=== PATIENT | male | born 1970 | race Caucasian/White ===

== ENCOUNTER 2020-08-30 15:06 | Emergency (ER) | payer OTHER, SELFPAY ==
[2020-08-30 15:28] VITALS: BP 144/88; PULSE 75; RESP 18; TEMP 37.1; O2SAT 97; BMI 38.0
--- NOTE | 2020-08-30 15:29 | ED.GENADULT ---
HPI - General Adult General Stated complaint: chest pain Time Seen by Provider: 08/30/20 15:28 Related Data Allergies Allergy/AdvReac Type Severity Reaction Status Date / Time No Known Allergies Allergy Unverified 04/28/20 15:35 [No Known Allergies*] [facility] Past Medical History Medical History (Updated 08/30/20 @ 15:33 by Edy Louise) No known health problems Course Course Course Narrative: 1535-This is a rapid medical exam. 50 yo with no PMH, strong family history of dad [place] 41 here with central chest pain began this morning with shortness of breath and burning in throat. Will check labs, CXR, EKG. Deferred additional HPI, ROS, PE to primary provider.
--- NOTE | 2020-08-30 15:31 | XR_ITS ---
EXAMINATION: XR CHEST CLINICAL INFORMATION: Chest pain. COMPARISON: 11/14/2019 portable chest. TECHNIQUE: 2 views of the chest were obtained. FINDINGS: No significant abnormality is noted involving the heart, lungs, mediastinum, bony thorax or soft tissues. XR/XR chest 2V IMPRESSION: No acute cardiopulmonary process.
--- NOTE | 2020-08-30 15:31 | ECG_ITS ---
Test Reason : CP Blood Pressure : / mmHG Vent. Rate : 070 BPM Atrial Rate : 070 BPM P-R Int : 154 ms QRS Dur : 096 ms QT Int : 372 ms P-R-T Axes : 041 029 033 degrees QTc Int : 401 ms Normal sinus rhythm Normal ECG When compared with ECG of 15-NOV-2019 01:41, No significant change was found Referred By: Terrie Archibald Electronically Signed By:AFUA CALHOUN
[2020-08-30 16:09] LABS: MANUAL DIFF FLAG NO
[2020-08-30 16:11] LABS: Basophils Percent Auto 0.4 % (0-2); Eosinophils Absolute Auto 0.1 X10*3/uL (0.0-0.4); Eosinophils Percent Auto 1.9 % (0-4); Hematocrit 41.5 % (42-52); Hemoglobin 13.8 g/dl (14.0-18.0); Imm Gran Abs Auto 0.02 X10*3/uL (0.00-0.03); Imm Gran Pct Auto 0.3 % (0.0-0.4); Lymphocytes Absolute Auto 2.1 X10*3/uL (1.2-4.9); Lymphocytes Percent Auto 28.4 % (20-40); Mean Corpuscular HGB Conc 33.3 g/dl (31.0-36.0); Mean Corpuscular Hemoglobin 30.6 pg (27.0-33.0); Monocytes Absolute Auto 0.5 X10*3/uL (0.1-1.2); Monocytes Percent Auto 7.3 % (2-11); Neutrophils Absolute Auto 4.6 X10*3/uL (2.0-8.3); Neutrophils Percent Auto 61.7 % (45-73); Platelet Count 258 X10*3/uL (160-400); Red Blood Count 4.51 X10*6/uL (4.60-5.80); White Blood Count 7.4 X10*3/uL (4.8-10.8)
[2020-08-30 16:35] LABS: Alanine Aminotransferase 20 U/L (0-40); Albumin Level 4.5 g/dL (3.5-5.0); Alkaline Phosphatase 54 U/L (39-117); Anion Gap 11 (12-20); Aspartate Amino Transferase 21 U/L (5-37); Bilirubin Direct 0.2 mg/dL (0.0-0.5); Bilirubin Total 0.4 mg/dL (0.0-1.0); Blood Urea Nitrogen 10 mg/dL (9-16); Calcium 10.4 mg/dL (8.4-10.2); Carbon Dioxide 34 mmol/L (22-29); Chloride 98 mmol/L (96-108); Creatinine Clr Calc Pharmacy 89.7; Estimated Glomerular Filt Rate > 60; Glucose Random 101 mg/dL (60-115); Potassium 4.3 mmol/l (3.3-5.1); Sodium 139 mmol/L (135-145)
[2020-08-30 16:41] LABS: Troponin-I High Sensitivity < 3.5 ng/L (<3.5-35.0)
[2020-08-30 20:51] VITALS: BP 169/96; PULSE 71; RESP 18; TEMP 36.8; O2SAT 99
[2020-08-30] MEDS: 0.9 % Sodium Chloride 1,000 ML 999 ML IV (21:43)
[2020-08-30] MEDS: Famotidine/PF 20 MG/2 ML VIAL IVPUSH (21:44)
[2020-08-30] MEDS: Magnesium Hydrox/Alum Hydrox 30 ML ORAL.SUSP PO (21:46)
[2020-08-30] MEDS: Lidocaine HCl Viscous 2 % 15 ML SOLUTION MUCOUS MEM (21:46)
[2020-08-30] MEDS: PHENobarb/Hyoscy/Atropine/Scop 10 ML ELIXIR PO (21:47)
[2020-08-30 22:12] VITALS: BP 132/72; PULSE 61; RESP 15; TEMP 36.6; O2SAT 98
--- NOTE | 2020-08-30 22:27 | ED_ITS ---
HPI - Chest Pain General Chief Complaint: Chest Pain Stated Complaint: chest pain Time Seen by Provider: 08/30/20 15:28 Source: patient Mode of arrival: ambulatory Limitations: no limitations History of Present Illness HPI narrative: Patient presents to ED for chest pain described as epigastric burning acid sensation going up to the throat. Patient has similar presentation in November. Patient states he came to ED to be evaluated due to history of father having heart attack at 40. Patient denies any pleuritic chest pain, swelling of lower extremities, calf pain, coughing up blood, fever, or chills. Patient de nies any recent travel, recent surgery, any estrogen use, any recent trauma, or any history of blood clots. MD complaint: chest pain Related Data Previous Rx's Medication Instructions Recorded famotidine [Pepcid] 20 mg PO BID 20 Days #40 tab 08/30/20 Allergies Allergy/AdvReac Type Severity Reaction Status Date / Time No Known Allergies Allergy Unverified 04/28/20 15:35 [No Known Allergies*] Review of Systems Review of Systems: Yes all other systems are reviewed and are negative Constitutional: Constitutional: Reports as per HPI and Reports no additional constitutional complaints Eyes: Eyes: Reports as per HPI and Reports no additional eye complaints Cardiovascular: Cardiovascular: Reports as per HPI, Reports no additional cardiovascular complaints and Reports chest pain (Epigastric burning sensation) Respiratory: Respiratory: Reports as per HPI and Reports no additional respiratory complaints Gastrointestinal: Gastrointestinal: Reports as per HPI and Reports no additional gastrointestinal complaints Musculoskeletal: Musculoskeletal: Reports no additional musculoskeletal complaints and Reports as per HPI Neurologic: Reports system reviewed and no additional complaints, except as documented and Reports as per HPI Psychiatric: Psychiatric: Reports no additional psychiatric complaints and Reports as per HPI [facility] Past Medical History Medical History (Updated 08/31/20 @ 00:00 by Background Daemon) No known health problems Social History Social History Alcohol intake: current Alcohol intake frequency: a few times a week Smoked in Last 30 Days: No Use of substances other than those prescribed or required for medical reasons: No Advance Directives: No Advance Directives Information Provided: No Physical Exam Vital Signs: Vital Signs: Last Vital Signs Temp 97.8 F 08/30/20 22:12 Pulse 61 08/30/20 22:12 Resp 15 08/30/20 22:12 BP 132/72 08/30/20 22:12 Pulse Ox 98 08/30/20 22:12 Body Mass Index 38.0 Const: General: cooperative Orientation/consciousness: patient oriented x3 HENMT: Head: Yes normal to inspection, Yes No palpable skull fracture present, Yes normocephalic and Yes atraumatic Eyes: General: appearance normal, both eyes and all related structures Neck: Neck: Yes normal visual inspection, Yes full ROM, Yes no lymphadenopathy, Yes no meningeal signs, Yes trachea midline, Yes supple and No tender Chest: Chest palpation & inspection: normal inspection of the chest and normal palpation of entire chest wall Resp: Effort & Inspection: normal respiratory effort and able to speak in complete sentences Auscultation: clear to auscultation bilaterally Cardio: Jugular venous distension: no JVD Heart sounds: S1 normal heart sound present and S2 normal heart sound present GI: Inspection: Yes normal to inspection Palpation (GI): Soft to palpation, not firm, nontender, no guarding and not rigid : General: No CVA tenderness and Yes no CVA tenderness Back/Spine/Pelvis: Back: no CVA tenderness, No CVA tenderness and No back tenderness Skin: General skin exam: no rashes or lesions noted and elasticity normal Neuro: General: patient oriented x3, no meningeal signs and CN's II-XI intact bilaterally Cranial nerves: Yes CN's II-XII intact bilaterally Extrem: General: Yes normal to inspection and Yes full ROM Psych: Appearance: grossly normal, well kempt and not disheveled Course Course Course Narrative: Due to age and family history patient will be having a cardiac evaluation. Most likely patient had a GERD exacerbation. Not suspecting PE. Patient has no risk factors for PE. Patient also had chest x-ray done. Patient will be given GI cocktail. Patient states burning sensation in epigastric area is now only a 2. Reevaluation(s) Reevaluation #1: Second troponin came back negative. Patient's EKG is normal. Patient feels better after receiving GI cocktail. BNP negative. History physical exam not suspecting or indicating PE. History physical exam indicate GERD exacerbation. Patient for to follow up with PCP Time: 10:46 MDM - Chest Pain MDM Narrative Medical decision making narrative: GERD Lab Data Result diagrams: 08/30/20 16:04 08/30/20 16:04 Labs: Lab Results 08/30/20 08/30/20 08/30/20 Range/Units 16:04 16:04 16:04 WBC 7.4 (4.8-10.8) X10*3/uL RBC 4.51 L (4.60-5.80) X10*6/uL Hgb 13.8 L (14.0-18.0) g/dl Hct 41.5 L (42-52) % MCV 92.0 (80-98) fL MCH 30.6 (27.0-33.0) pg MCHC 33.3 (31.0-36.0) g/dl RDW 12.0 (11.0-16.0) % Plt Count 258 (160-400) X10*3/uL MPV 9.0 L (9.4-12.4) fL Immature Gran % (Auto) 0.3 (0.0-0.4) % Neut % (Auto) 61.7 (45-73) % Lymph % (Auto) 28.4 (20-40) % [place] % (Auto) 7.3 (2-11) % Eos % (Auto) 1.9 (0-4) % Baso % (Auto) 0.4 (0-2) % Lymph # (Auto) 2.1 (1.2-4.9) X10*3/uL [place] # (Auto) 0.5 (0.1-1.2) X10*3/uL Eos # (Auto) 0.1 (0.0-0.4) X10*3/uL Baso # (Auto) 0.0 (0.0-0.2) X10*3/uL Abs Immat Gran (auto) 0.02 (0.00-0.03) X10*3/uL Absolute Neuts (auto) 4.6 (2.0-8.3) X10*3/uL Absolute Nucleated RBC 0.000 (0.0-0.012) X10*3/uL Nucleated RBC % (auto) 0.0 (0.0-0.2) /100WBC Sodium 139 (135-145) mmol/L Potassium 4.3 (3.3-5.1) mmol/l Chloride 98 (96-108) mmol/L Carbon Dioxide 34 H (22-29) mmol/L Anion Gap 11 L (12-20) BUN 10 (9-16) mg/dL Creatinine 0.90 (0.5-1.4) mg/dL Estim Creat Clear Calc 89.7 Estimated GFR > 60 Random Glucose 101 (60-115) mg/dL Calcium 10.4 H (8.4-10.2) mg/dL Total Bilirubin 0.4 (0.0-1.0) mg/dL Direct Bilirubin 0.2 (0.0-0.5) mg/dL AST 21 (5-37) U/L ALT 20 (0-40) U/L Alkaline Phosphatase 54 (39-117) U/L Troponin I High Sens < 3.5 (<3.5-35.0) ng/L B-Natriuretic Peptide (<100) pg/mL Total Protein 7.0 (6.5-8.0) g/dL Albumin 4.5 (3.5-5.0) g/dL 08/30/20 Range/Units 21:43 WBC (4.8-10.8) X10*3/uL RBC (4.60-5.80) X10*6/uL Hgb (14.0-18.0) g/dl Hct (42-52) % MCV (80-98) fL MCH (27.0-33.0) pg MCHC (31.0-36.0) g/dl RDW (11.0-16.0) % Plt Count (160-400) X10*3/uL MPV (9.4-12.4) fL Immature Gran % (Auto) (0.0-0.4) % Neut % (Auto) (45-73) % Lymph % (Auto) (20-40) % [place] % (Auto) (2-11) % Eos % (Auto) (0-4) % Baso % (Auto) (0-2) % Lymph # (Auto) (1.2-4.9) X10*3/uL [place] # (Auto) (0.1-1.2) X10*3/uL Eos # (Auto) (0.0-0.4) X10*3/uL Baso # (Auto) (0.0-0.2) X10*3/uL Abs Immat Gran (auto) (0.00-0.03) X10*3/uL Absolute Neuts (auto) (2.0-8.3) X10*3/uL Absolute Nucleated RBC (0.0-0.012) X10*3/uL Nucleated RBC % (auto) (0.0-0.2) /100WBC Sodium (135-145) mmol/L Potassium (3.3-5.1) mmol/l Chloride (96-108) mmol/L Carbon Dioxide (22-29) mmol/L Anion Gap (12-20) BUN (9-16) mg/dL Creatinine (0.5-1.4) mg/dL Estim Creat Clear Calc Estimated GFR Random Glucose (60-115) mg/dL Calcium (8.4-10.2) mg/dL Total Bilirubin (0.0-1.0) mg/dL Direct Bilirubin (0.0-0.5) mg/dL AST (5-37) U/L ALT (0-40) U/L Alkaline Phosphatase (39-117) U/L Troponin I High Sens < 3.5 (<3.5-35.0) ng/L B-Natriuretic Peptide < 10 (<100) pg/mL Total Protein (6.5-8.0) g/dL Albumin (3.5-5.0) g/dL ECG Data ECG #1: Interpretation: NORMAL SINUS RHYTHM. NORMAL EKG. VENTRICULAR RATE 70. CT INTERVAL 154. QRS 96. QTC 4 1. NEGATIVE STEMI Discharge Plan Discharge Clinical Impression: Chest pain due to GERD Patient Disposition: Home, Self-Care Instructions: Chest Pain (ED), Gastroesophageal Reflux Disease (ED) Additional Instructions: RETURN TO THE ED IMMEDIATELY FOR SHORTNESS OF BREATH ON EXERTION, WORSENING CHEST PAIN, CHEST PAIN ON INSPIRATION, ABDOMINAL PAIN, FEVER, CHILLS, VOMITING BLOOD, RECTAL BLEEDING, DIZZINESS, SWELLING OF LOWER EXTREMITIES, CALF PAIN, OR ANY OTHER CONCERNING SYMPTOMS. Prescriptions: New famotidine [Pepcid] 20 mg tablet 20 mg PO BID 20 Days Qty: 40 RF: 0 Referrals: Pawel Dang MD [Physician] - 2 days (GERD. Will need endoscopy to evaluate for ulcers) Bebeto Feldman MD [Physician] - 2 days (Chest pain. Family history of father with heart attack at 40. EKG normal. Troponins negative. BNP negative. Needs follow-up) Interventions: ED Discharge Assessment Last Done: 08/30/20 23:23 Discharge Date/Time: 08/30/20 23:33 Print Language: French
[2020-08-30 22:29] LABS: Troponin-I High Sensitivity < 3.5 ng/L (<3.5-35.0)
--- NOTE | 2020-08-30 22:40 | PC.NURSE ---
some immediate relief with gi cocktail but pain resuming afterwards.
[2020-08-30 22:44] LABS: B Type Natriuretic Peptide < 10 pg/mL (<100)
== END 2020-08-30 23:33 | disposition home or self-care (01) ==
PROVIDERS: Nurse Practitioner Family; Physician Assistant; Emergency Provider Emergency Medicine Emergency Medical Services; PCP Internal Medicine
DX: R07.9 Chest pain, unspecified (principal); K21.9 Gastro-esophageal reflux disease without esophagitis
CPT/HCPCS: 36415; 71046; 80048; 80076; 83880; 84484; 85025; 93005; 96361; 96374; 99284

== ENCOUNTER → 2020-09-08 12:32 | Outpatient (BNVA) | payer OTHER, SELFPAY | PROVIDERS: PCP Internal Medicine; Visit Provider Physician Assistant ==

== ENCOUNTER 2020-11-02 08:24 | Day surgery (SDC) | payer OTHER, SELFPAY ==
[2020-10-26 15:50] VITALS: BMI 28.0
--- NOTE | 2020-11-01 09:14 | P.CONAN_ITS ---
Documented by User: July Michaud 11/01/20 09:18 HPI - Anesthesia Eval Consult details Narrative: 50yo M for Upper Endoscopy and Colonoscopy [facility] Active Problems Active Problems: All Active Problems (Updated 10/26/20 @ 15:47 by Daisy Chahal) Chest pain due to GERD (Acute) Encounter for screening colonoscopy (Acute) Past Medical History Medical History GERD (gastroesophageal reflux disease) Family History Family History Father Cancer Pancreatic cancer Brother Adenomatous colon polyp Mother Adenomatous colon polyp Surgical History Surgical History H/O arthroscopic knee surgery Social History Social History Household Members: Spouse and Children Are you a primary auto care center manager to a significant other at home: No Do you presently have visiting nurse or other home services: No Alcohol intake: current Alcohol intake frequency: a few times a week Smoking Status: Never smoker Years Smoked: 19 years Advance Directives: No Advance Directives Information Provided: No Advance Directives on File: No Current occupational status: employed 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 Rate : 070 BPM Atrial Rate : 070 BPM P-R Int : 154 ms QRS Dur : 096 ms QT Int : 372 ms P-R-T Axes : 041 029 033 degrees QTc Int : 401 ms Normal sinus rhythm Normal ECG When compared with ECG of 15-NOV-2019 01:41, No significant change was found Assessment and Plan Assessment Anesthesia Assessment: Chart Reviewed Documented by User: Stacia Hunter 11/02/20 09:59 PMF Past Medical History Medical History GERD (gastroesophageal reflux disease) Family History Family History Father Cancer Pancreatic cancer Brother Adenomatous colon polyp Mother Adenomatous colon polyp Surgical History Surgical History H/O arthroscopic knee surgery Social History Social History Household Members: Spouse and Children Are you a primary auto care center manager to a significant other at home: No Do you presently have visiting nurse or other home services: No Alcohol intake: current Alcohol intake frequency: a few times a week Smoking Status: Never smoker Years Smoked: 19 years Advance Directives: No Advance Directives Information Provided: No Advance Directives on File: No Current occupational status: employed 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
[2020-11-02 08:46] VITALS: BP 115/72; PULSE 74; RESP 18; TEMP 36.1; O2SAT 97
[2020-11-02] MEDS: Lactated Ringers 1,000 ML 100 ML IVCONT (08:53)
--- NOTE | 2020-11-02 09:35 | MHC.SHP ---
Pre-Procedural Eval Section B Chief Complaint: GERD, Screening Details of Present Illness: fh of polyps Relevant Family History (Specify if Yes): Yes Relevant Social History: None Present Medications: see Short Stay Collaborative assessment Medical History: Significant History (GERD (gastroesophageal reflux disease) History of Previous Operations: Relevant previous surgery/procedure and date(s) (knee surgery) Allergies: Allergies Allergy/AdvReac Type Severity Reaction Status Date / Time No Known Allergies Allergy Verified 11/02/20 08:43 [No Known Allergies*] Review of Systems Sugical H&P ROS: Negative: Constitution, Cardiovascular, Respiratory, Neurological, Psychiatric, Hem-Onc, Allergic/Immunologic, Gastrointestinal, Genitourinary, Musculoskeletal, Integumentary, Endocrine and Eyes/Ears/Nose/Throat Exam Surgical H&P Exam: Normal: HEENT, Normal: Heart, Normal: Lungs, Normal: Extremities, Normal: Abdomen, Normal: Skin and Normal: Neurological Plan Diagnosis/Plan: Unchanged I have reviewed the history and physical and performed a pertinent physical examination on my patient. No changes have occurred unless specified.
--- NOTE | 2020-11-02 09:55 | PM.OP ---
Brief Operative Note Date of Service: 11/02/20 Pre-op diagnosis: non cardiac chest pain, colon screening Post-op diagnosis: same Procedure: see op note Surgeon: Pawel Dang MD Anesthesia: MAC Estimated blood loss (mL): 0 Condition: stable Disposition: PACU
--- NOTE | 2020-11-02 09:56 | P.OP_ITS ---
Operative Note Operative Note Date of Service: 11/02/20 Narrative: Operative Information Procedure Description: EGD, Colonoscopy FLEXIBLE TRANSORAL UPPER GASTROINTESTINAL ENDOSCOPY AND COLONOSCOPY PROCEDURE NOTE UPPER ENDOSCOPY Consent: Indications for the procedure and potential complications of bleeding, perforation, reaction to medications and missed diagnosis were discussed with the patient and informed consent was obtained. Instrument: Olympus GIF H 190 J mid size upper endoscope Monitoring: Vital signs and clinical assessment, continuous EKG monitoring, Pulse oximetry, Carbon Dioxide monitoring and blood pressure monitoring were done throughout the procedure. Procedure: The patient was placed in the left lateral decubitis position and pre-procedure medications were administered and a bite block was placed. The endoscope was inserted into the mouth and advanced under direct vision to the third part of duodenum. A careful inspection was made as the upper endoscope was withdrawn including a retroflexed examination of the proximal stomach; Findings and interventions are described below. 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 Biopsies were obtained. Grade 2 flap valve on retroflexed examination of the cardia. Duodenum: Mild bulbar duodenitis, bx taken Intervention: Biopsies as noted above COLONOSCOPY Instrument: Olympus variable stiffness pediatric scope 190L Colonoscopy Monitoring: Vital signs and clinical assessment, continuous EKG monitoring, Pulse oximetry, Carbon Dioxide monitoring and blood pressure monitoring were done throughout the procedure. Colon withdrawal time was 13 minutes. Procedure: The patient was placed in the left lateral decubitis position and pre-procedure medications were administered. After a digital rectal examination of the ano-rectum, the video colonoscope was inserted into the rectum and advanced through the colon to the cecum/TI. The colonoscope was slowly withdrawn in a retrograde panoramic fashion and the colon mucosa was carefully examined including a retroflexed view of the rectum. Findings and interventions are described below. Procedure Difficulty: easy Findings: Terminal Ileum-normal Cecum:normal, few diverticula seen Ascending Colon: normal Transverse Colon -normal Descending Colon: 8-10 mm sessile polyp removed with cold snare Sigmoid Colon: mild diverticulosis, 8-10 mm sessile polyp removed with cold snare Rectum: Retroflexion with small internal hemorrhoids, grade II Anorectum - internal hemorrhoids seen at anal verge Colon preparation: [place] Bowel Preparation Scale Right colon; 3 Transverse colon: 3 Left colon; 3 (0 = Unprepared colon segment with mucosa not seen due to solid stool that cannot be cleared. 1 = Portion of mucosa of the colon segment seen, but other areas of the colon segment not well seen due to staining, residual stool and/or opaque liquid. 2 = Minor amount of residual staining, small fragments of stool and/or opaque liquid, but mucosa of colon segment seen well. 3 = Entire mucosa of colon segment seen well with no residual staining, small fragments of stool or opaque liquid) Impression and Post Procedure Diagnosis: Endoscopy Findings: vocal cord nodule esophagitis duodenitis Colonoscopy Findings: polyps internal hemorrhoids diverticular disease Plan: Await Pathology results Repeat Colonoscopy in 5 years or earlier if clinically indicated High fiber diet leaflet avoid straining at stool, epsom salts and sitz bath, anusol supps or cream as needed consider changing famotidine to PPI if any vocal cord sx then f/u with ENT Above findings were reviewed with the patient and relevant handouts were provided if indicated.
[2020-11-02 10:22] VITALS: BP 106/72; PULSE 70; RESP 18; TEMP 37.5; O2SAT 99
[2020-11-02 10:41] VITALS: BP 109/81; PULSE 65; RESP 18; TEMP 36.2; O2SAT 97
== END 2020-11-02 11:06 | disposition home or self-care (01) ==
PROVIDERS: PCP Internal Medicine; Visit Provider Internal Medicine Gastroenterology
PROC: (CPT 45385; principal; 2020-11-02 09:30)
DX: Z12.11 Encounter for screening for malignant neoplasm of colon (principal); Z83.71 Family history of colonic polyps; D12.4 Benign neoplasm of descending colon; D12.5 Benign neoplasm of sigmoid colon; K57.30 Diverticulosis of large intestine without perforation or abscess without bleeding; K64.1 Second degree hemorrhoids; K21.00 Gastro-esophageal reflux disease with esophagitis, without bleeding; K29.50 Unspecified chronic gastritis without bleeding; K29.80 Duodenitis without bleeding; K44.9 Diaphragmatic hernia without obstruction or gangrene; J38.2 Nodules of vocal cords; Z79.899 Other long term (current) drug therapy; Z87.891 Personal history of nicotine dependence
CPT/HCPCS: 45385; 43239; 88305; 88342; J2250

== ENCOUNTER → 2020-11-23 10:48 | Outpatient (BNVA) | payer OTHER, SELFPAY | PROVIDERS: Visit Provider Physician Assistant ==

== ENCOUNTER 2021-07-04 06:28 | Outpatient (REF) | payer OTHER, SELFPAY ==
[2021-07-04 11:28] LABS: MANUAL DIFF FLAG NO
[2021-07-04 11:34] LABS: Basophils Absolute Auto 0.1 X10*3/uL (0.0-0.2); Basophils Percent Auto 0.8 % (0-2); Eosinophils Absolute Auto 0.2 X10*3/uL (0.0-0.4); Eosinophils Percent Auto 3.7 % (0-4); Hematocrit 46.4 % (42.0-52.0); Hemoglobin 15.2 g/dl (14.0-18.0); Imm Gran Abs Auto 0.01 X10*3/uL (0.00-0.03); Imm Gran Pct Auto 0.2 % (0.0-0.4); Lymphocytes Absolute Auto 2.6 X10*3/uL (1.2-4.9); Mean Corpuscular HGB Conc 32.8 g/dl (31.0-36.0); Mean Corpuscular Volume 94.7 fL (80.0-98.0); Mean Platelet Volume 9.7 fL (9.4-12.4); Monocytes Absolute Auto 0.7 X10*3/uL (0.1-1.2); Monocytes Percent Auto 11.6 % (2-11); Neutrophils Absolute Auto 2.4 x10*3/uL (2.0-8.3); Neutrophils Percent Auto 39.7 % (45-73); Platelet Count 290 X10*3/uL (160-400); Red Cell Distribution Width 12.5 % (11.0-16.0)
[2021-07-04 11:54] LABS: Alanine Aminotransferase 24 U/L (0-40); Albumin Level 4.3 g/dL (3.5-5.0); Alkaline Phosphatase 53 U/L (39-117); Anion Gap 13 (12-20); Aspartate Amino Transferase 24 U/L (5-37); Bilirubin Total 0.6 mg/dL (0.0-1.0); Blood Urea Nitrogen 12 mg/dL (9-16); Carbon Dioxide 31 mmol/L (22-29); Chloride 101 mmol/L (96-108); Cholesterol 250 mg/dL; Estimated Glomerular Filt Rate > 60; Glucose Fasting 95 mg/dL (60-99); HDL Cholesterol 61 mg/dL; LDL Cholesterol Calculated 171 mg/dl; Potassium 4.4 mmol/L (3.3-5.1); Sodium 141 mmol/L (135-145); Total Protein 6.8 g/dL (6.5-8.0); Triglycerides 92 mg/dL
[2021-07-04 12:17] LABS: PSA,Total (Free>4and<10) 0.54 ng/mL (0.00-4.00)
== END 2021-07-04 06:29 | disposition home or self-care (01) ==
LOC: HO.HMGCLDS 06:28
PROVIDERS: PCP Internal Medicine; Visit Provider Internal Medicine
DX: Z12.5 Encounter for screening for malignant neoplasm of prostate (principal); E78.5 Hyperlipidemia, unspecified; D64.9 Anemia, unspecified; K21.9 Gastro-esophageal reflux disease without esophagitis
CPT/HCPCS: 36415; 80053; 80061; 84153; 85025

== ENCOUNTER 2022-07-18 06:01 | Outpatient (REF) | payer OTHER, SELFPAY ==
[2022-07-18 12:09] LABS: Alanine Aminotransferase 24 U/L (0-40); Albumin Level 4.4 g/dL (3.5-5.0); Alkaline Phosphatase 52 U/L (39-117); Anion Gap 10 (12-20); Aspartate Amino Transferase 24 U/L (5-37); Bilirubin Total 0.7 mg/dL (0.0-1.0); Blood Urea Nitrogen 13 mg/dL (9-16); Carbon Dioxide 33 mmol/L (22-29); Chloride 102 mmol/L (96-108); Cholesterol 239 mg/dL; Estimated Glomerular Filt Rate > 60; Glucose Fasting 96 mg/dL (60-99); HDL Cholesterol 56 mg/dL; LDL Cholesterol Calculated 166 mg/dl; Potassium 4.3 mmol/L (3.3-5.1); Sodium 141 mmol/L (135-145); Total Protein 6.5 g/dL (6.5-8.0); Triglycerides 88 mg/dL
== END 2022-07-18 06:02 | disposition home or self-care (01) ==
LOC: HO.HMGCLDS 06:01
PROVIDERS: PCP Internal Medicine; Visit Provider Internal Medicine
DX: E78.5 Hyperlipidemia, unspecified (principal); E78.00 Pure hypercholesterolemia, unspecified
CPT/HCPCS: 36415; 80053; 80061

== ENCOUNTER 2023-01-21 06:03 | Outpatient (REF) | payer OTHER, SELFPAY ==
[2023-01-21 11:55] LABS: Cholesterol 211 mg/dL; HDL Cholesterol 52 mg/dL; LDL Cholesterol Calculated 138 mg/dl; Triglycerides 105 mg/dL
== END 2023-01-21 06:04 | disposition home or self-care (01) ==
LOC: HO.HMGCLDS 06:03
PROVIDERS: PCP Internal Medicine; Visit Provider Internal Medicine
DX: E78.00 Pure hypercholesterolemia, unspecified (principal)
CPT/HCPCS: 36415; 80061

== ENCOUNTER 2023-07-16 06:06 | Outpatient (REF) | payer OTHER, SELFPAY ==
[2023-07-16 10:29] LABS: MANUAL DIFF FLAG NO
[2023-07-16 11:03] LABS: Basophils Absolute Auto 0.1 X10*3/uL (0.0-0.2); Basophils Percent Auto 0.9 % (0-2); Eosinophils Absolute Auto 0.2 X10*3/uL (0.0-0.4); Eosinophils Percent Auto 2.8 % (0-4); Hemoglobin 14.9 g/dl (14.0-18.0); Imm Gran Abs Auto 0.01 X10*3/uL (0.00-0.03); Imm Gran Pct Auto 0.2 % (0.0-0.4); Lymphocytes Absolute Auto 2.1 X10*3/uL (1.2-4.9); Lymphocytes Percent Auto 38.3 % (20-40); Mean Corpuscular HGB Conc 32.4 g/dl (31.0-36.0); Mean Corpuscular Hemoglobin 30.8 pg (27.0-33.0); Mean Corpuscular Volume 95.2 fL (80.0-98.0); Mean Platelet Volume 9.7 fL (9.4-12.4); Monocytes Absolute Auto 0.7 X10*3/uL (0.1-1.2); Monocytes Percent Auto 12.8 % (2-11); Neutrophils Absolute Auto 2.4 x10*3/uL (2.0-8.3); Platelet Count 257 X10*3/uL (160-400); Red Blood Count 4.83 X10*6/uL (4.60-5.80); Red Cell Distribution Width 12.1 % (11.0-16.0); White Blood Count 5.4 X10*3/uL (4.8-10.8)
[2023-07-16 11:18] LABS: Alanine Aminotransferase 29 U/L (0-40); Albumin Level 4.4 g/dL (3.5-5.0); Alkaline Phosphatase 50 U/L (39-117); Anion Gap 12 (12-20); Aspartate Amino Transferase 31 U/L (5-37); Bilirubin Total 1.1 mg/dL (0.0-1.0); Blood Urea Nitrogen 10 mg/dL (9-16); Carbon Dioxide 31 mmol/L (22-29); Chloride 100 mmol/L (96-108); Cholesterol 218 mg/dL (<200); Estimated Glomerular Filt Rate > 60; Glucose Fasting 92 mg/dL (60-99); HDL Cholesterol 62 mg/dL (>40); LDL Cholesterol Calculated 144 mg/dL (<100); Sodium 139 mmol/L (135-145); Total Protein 7.1 g/dL (6.5-8.0); Triglycerides 64 mg/dL (<150)
== END 2023-07-16 06:07 | disposition home or self-care (01) ==
LOC: HO.HMGCLDS 06:06
PROVIDERS: PCP Internal Medicine; Visit Provider Internal Medicine
DX: Z00.00 Encounter for general adult medical examination without abnormal findings (principal); L98.9 Disorder of the skin and subcutaneous tissue, unspecified; E78.5 Hyperlipidemia, unspecified
CPT/HCPCS: 36415; 80053; 80061; 85025

== ENCOUNTER 2023-07-19 12:18 | Outpatient (REF) | payer OTHER, SELFPAY ==
--- NOTE | ~2023-07-19 | XR_ITS ---
EXAMINATION: XR chest 2V CLINICAL INFORMATION: Reason for Exam R05.9 - Cough, unspecified COMPARISON: 2020 TECHNIQUE: XR chest 2V, 2 Views Lungs and Shira: Both lungs are clear. Pleura: Normal. Costophrenic angles are sharp. No pneumothorax. Heart: The heart is normal in size. Mediastinum: The mediastinum is within normal limits.. Bones: Skeletal structures included are normal for patient's age. XR/XR chest 2V IMPRESSION: No radiographic evidence of acute cardiopulmonary disease.
== END 2023-07-19 12:19 | disposition home or self-care (01) ==
LOC: HO.HMGCX 12:18
PROVIDERS: PCP Internal Medicine; Visit Provider Internal Medicine
DX: R05.9 Cough, unspecified (principal)
CPT/HCPCS: 71046

== ENCOUNTER 2023-07-31 14:18 | Outpatient (AMB) | payer OTHER, SELFPAY ==
[2023-07-31 14:23] VITALS: BP 140/78; BMI 28.8
--- NOTE | 2023-07-31 14:23 | MHC.PC.OV ---
Vital Signs 07/31/23 14:23 Height 5 ft 9 in Weight 195 lb BMI 28.8 BP 140/78 H Blood Pressure Location Lt brachial Position Sitting Intake Visit Reasons: Work related injury Intake Note: Patient here for work injury Mont[employer] Paraprofessional Required: No Accompanied by: Self / Same As Patient Allergies No Known Allergies [No Known Allergies*] Allergy (Verified 07/31/23 14:29) Medication List - Last Reconciled 07/31/23 by Lora Cummings MD No Known Home Meds Tobacco use date assessed: 07/31/23 Dental Screening Dental Screen Date: 07/31/23 Did you have a dental visit in the last 12 months?: Yes Did you have a dental problem in the last 6 months where you did not have access to dental care?: No Was dental information given to patient?: Patient has dentist HPI HPI Comments History of Present Illness Details This is a 53-year-old male with pure hypercholesterolemia, chronic GERD and skin lesion that comes today due to an injury at work to the left knee that happened 07/18/2023 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 At the moment he has no restriction of movement. Able to squat and bend as many times as needed. Able to go back to work. Does not require any statins at the moment. GERD stable with diet. Has a skin lesion and will have a medication for it. [facility] Medical History (Updated 07/31/23 @ 16:15 by Lora Cummings MD) Pure hypercholesterolemia Skin lesion GERD (gastroesophageal reflux disease) Surgical History History of removal of nevus History of esophagogastroduodenoscopy (EGD) H/O colonoscopy H/O arthroscopic knee surgery Family History Father Cancer Pancreatic cancer Brother Adenomatous colon polyp Mother Adenomatous colon polyp Osteoporosis Pure hypercholesterolemia Social History Household Members: Spouse and Children Housing: House Are you a primary customer care agent to a significant other at home: No Do you presently have visiting nurse or other home services: No Alcohol intake: current Alcohol intake frequency: a few times a week Patient Tobacco Use Status: Current someday Tobacco user Tobacco use type: Cigar Years Smoked: 19 years e-Cigarette/Vaping Use: Never Used Second Hand Smoke Exposure: No service: No Current occupational status: employed Current occupation: [employer] Current occupational exposures/hazards: No Cognitive needs: No Hearing needs: No Vision needs: No Questionnaire Thrive Questionnaire Date Thrive assessed: 01/11/22 PRIMO-7 AMB Questionnaire PRIMO-7 Date PRIMO - 7 assessed: 01/11/22 Source: Developed by Drs. Nacho Henao, Erika Ocasio, Сергей Rossi and colleagues, with an educational ashutosh from [employer]. Review of Systems Const All systems reviewed & are unremarkable except as noted in HPI and below Eyes Reports no additional complaints, Denies change in vision and Denies other visual disturbances Card Denies chest pain at rest, Denies chest pain with activity, Denies edema, Denies irregular heart rhythm, Denies claudication, Denies dyspnea, Denies dyspnea on exertion, Denies orthopnea, Denies paroxysmal nocturnal dyspnea and Denies slow heart rate Resp Denies cough, Denies dyspnea and Denies dyspnea on exertion GI Denies abdominal pain, Denies change in bowel habits, Denies excessive flatus, Denies nausea and Denies vomiting Denies urinary hesitancy, Denies urinary incontinence and Denies urinary urgency Musc Denies abnormal gait, Denies atrophy, Denies deformity and Denies limited range of motion Skin/Breast Denies bleeding lesions, Denies changing lesions and Denies rash Neuro Denies abnormal gait and Denies lack of coordination Physical exam (Primary Care) Vital Signs: Last Vital Signs BP 140/78 H 07/31/23 14:23 BMI result Body Mass Index 28.8 Tobacco/Smoking Status: Tobacco use Status Tobacco use date assessed 07/31/23 07/31/23 14:28 Patient Tobacco Use Status Current someday Tobacco 07/31/23 14:28 Tobacco use type Cigar 07/31/23 14:28 e-Cigarette/Vaping Use Never Used 07/31/23 14:28 Thrive Assessment: Date of Thrive Assessment Date Thrive assessed 01/11/22 07/31/23 14:28 Eyes General: appearance normal, both eyes and all related structures Eyelids: Yes eyelids normal Conjunctivae: conjunctivae normal Neck Neck: Yes normal visual inspection and Yes supple Resp Effort & Inspection: normal respiratory effort Auscultation: clear to auscultation bilaterally Cardio Jugular venous distension: no JVD Rate: regular rate Rhythm: regular rhythm Heart sounds: S1 normal heart sound present and S2 normal heart sound present Skin General skin exam: no rashes or lesions noted Extrem General: Yes full ROM Office Procedures Flu Questionnaire Does the patient have a severe egg allergy?: No Immunizations flu vacc [id number] 6mos up(PF) 60 mcg(15 mcgx4)/0.5 mL IM syringe Performing Provider: Lora Cummings MD [facility] Documented (not given) by: JARETH Krishnan on 07/31/23 15:24 Reason Not Given: Not Given Assessment and Plan Assessment & Plan (1) Work related injury: Code(s): Y99.0 - Civilian activity done for income or pay (2) Left knee sprain: Code(s): S83.92XA - Sprain of unspecified site of left knee, initial encounter Qualifiers: Encounter type: initial encounter Involved ligament of knee: unspecified ligament Qualified Code(s): S83.92XA - Sprain of unspecified site of left knee, initial encounter Plan: Patient can go back to work. (3) Chronic GERD: Comment: Switch famotidine to omeprazole 20 mg daily, avoid culprits. Code(s): K21.9 - Gastro-esophageal reflux disease without esophagitis Plan: Well controlled with diet. (4) Pure hypercholesterolemia: Code(s): E78.00 - Pure hypercholesterolemia, unspecified Plan: Continue low-cholesterol diet. (5) Skin lesion: Code(s): L98.9 - Disorder of the skin and subcutaneous tissue, unspecified Plan: Start clotrimazole-betamethasone cream. Orders: Orders Influenza [id number] Immunization Today Z23 - Encounter for immunization Medications: New clotrimazole-betamethasone 1-0.05 % 1 appl topical BID 2 weeks 15 grams 0RF Coding Level of Care Code Est Pt Level 4 (21242) Diagnoses Work related injury Y99.0 Sprain of left knee, unspecified ligament, initial encounter S83.92XA Encounter type: initial encounter Involved ligament of knee: unspecified ligament Chronic GERD K21.9 Pure hypercholesterolemia E78.00 Skin lesion L98.9 Time Spent (min) 23
== END 2023-07-31 14:54 | disposition home or self-care (01) ==
PROVIDERS: Visit Provider Internal Medicine
DX: S83.92XA Sprain of unspecified site of left knee, initial encounter (principal); Z04.2 Encounter for examination and observation following work accident; K21.9 Gastro-esophageal reflux disease without esophagitis; E78.00 Pure hypercholesterolemia, unspecified; L98.9 Disorder of the skin and subcutaneous tissue, unspecified
CPT/HCPCS: 99214

== ENCOUNTER 2023-08-14 08:48 | Outpatient (AMB) | payer OTHER, SELFPAY ==
[2023-08-14 08:56] VITALS: BMI 28.8
--- NOTE | 2023-08-14 08:56 | A.OFFVIS_ITS ---
Intake Vital Signs 08/14/23 08:56 Height 5 ft 9 in Weight 195 lb BMI 28.8 Intake Visit Reasons: [employer]-Left Knee WC Injury DOI- 07/18/23 Intake Note: Hank is a 53 year old male who presents today as a new patient for a evaluation of his left knee pain, DOI 07/18/23. 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 He was seen by his primary care doctor and an MRI of his left knee was ordered. The patient states that he underwent left knee arthroscopic surgery by Dr. 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 The patient has not returned to work since his recent injury. Allergies No Known Allergies [No Known Allergies*] Allergy (Verified 08/14/23 08:56) Medication List - Last Reconciled 08/14/23 by Thomas Bravo MD clotrimazole-betamethasone 1-0.05 % 1 appl topical BID 2 weeks [facility] Medical History (Updated 08/14/23 @ 09:20 by Thomas Bravo MD) Pure hypercholesterolemia Skin lesion GERD (gastroesophageal reflux disease) Surgical History History of removal of nevus History of esophagogastroduodenoscopy (EGD) H/O colonoscopy H/O arthroscopic knee surgery Family History Father Cancer Pancreatic cancer Brother Adenomatous colon polyp Mother Adenomatous colon polyp Osteoporosis Pure hypercholesterolemia Social History Household Members: Spouse and Children Housing: House Are you a primary farm or ranch animal caretaker to a significant other at home: No Do you presently have visiting nurse or other home services: No Alcohol intake: current Alcohol intake frequency: a few times a week Patient Tobacco Use Status: Current someday Tobacco user Tobacco use type: Cigar Years Smoked: 19 years e-Cigarette/Vaping Use: Never Used Second Hand Smoke Exposure: No service: No Current occupational status: employed 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 Current occupational exposures/hazards: No Cognitive needs: No Hearing needs: No Vision needs: No Physical Exam Vital Signs: BMI result Body Mass Index 28.8 Const Other: Well-nourished well-developed very friendly male awake alert and oriented x3 in no acute distress Extrem Other: Bilateral lower extremity examination shows good capillary refill, no skin lesions noted, normal sensation light touch Left knee examination shows a minimal effusion, minimal crepitus with range of motion, tenderness along his medial joint line, positive Chepe's test, no instability Assessment & Plan Assessment & Plan (1) Left knee pain: Code(s): M25.562 - Pain in left knee Plan Mr. Suárez presents with left knee pain and mechanical symptoms possibly due to a tear of his medial meniscus. I agree with having the patient undergo an MRI for further evaluation. I will see him back once the MRI is completed to discuss the findings and treatment options. Thank you very much for asking me to see this very friendly gentleman. I spent 20 minutes in reviewing the patient's records and imaging studies, seeing the patient and documenting in the medical record. Coding Level of Care Code New Pt Level 2 (50469) Diagnoses Left knee pain M25.562
== END 2023-08-14 09:14 | disposition home or self-care (01) ==
PROVIDERS: PCP Internal Medicine; Visit Provider Orthopaedic Surgery
DX: M25.562 Pain in left knee (principal)
CPT/HCPCS: 99202

== ENCOUNTER → 2023-08-14 08:48 | Outpatient (BNVA) | payer OTHER, SELFPAY | PROVIDERS: PCP Internal Medicine; Visit Provider Orthopaedic Surgery | DX: M25.562 Pain in left knee (principal) | CPT/HCPCS: 99202; 99212 ==

== ENCOUNTER 2023-08-30 12:43 | Outpatient (REF) | payer OTHER, SELFPAY ==
--- NOTE | ~2023-08-30 | XR_ITS ---
EXAMINATION: Pre-MRI orbits. CLINICAL INDICATION. History of radiopaque foreign body in orbits. TECHNIQUE: 3 views. FINDINGS: There are no radiopaque metallic foreign body seen in the orbits. The visualized paranasal sinuses and mastoid air cells are well-aerated and clear. No maxillofacial bony abnormality seen. XR/XR pre mri screening IMPRESSION: No radiopaque metallic foreign body seen in the orbits.
== END 2023-08-30 12:44 | disposition home or self-care (01) ==
LOC: HO.XRAY 12:43
PROVIDERS: PCP Internal Medicine; Visit Provider Internal Medicine
DX: Z13.89 Encounter for screening for other disorder (principal)

== ENCOUNTER 2023-09-04 07:19 | Outpatient (REF) | payer OTHER, SELFPAY ==
--- NOTE | ~2023-09-04 | MR_ITS ---
EXAMINATION: MR KNEE WITHOUT CONTRAST, LEFT CLINICAL INFORMATION: Left knee pain. COMPARISON: None available. TECHNIQUE: MRI of the knee without contrast was performed using routine sequences on a high-field scanner. FINDINGS: MENISCI: Medial Meniscus: Mild undersurface tearing of the posterior horn extending to the periphery at the junction with the meniscal body. Lateral Meniscus: Intact. LIGAMENTS: Cruciate: Intact. Collateral: Intact. EXTENSOR MECHANISM: Intact. Enthesopathy and chronic ossification at the patellar insertion onto the tibial tubercle. ARTICULAR CARTILAGE/BONE: Patellofemoral Compartment: Focal partial-thickness fissure of the medial patellar facet and focal surface irregularity of the median ridge. Medial Compartment: Peripheral cartilage thinning and subchondral marrow edema of the tibia posteromedially. Lateral Compartment: Normal. JOINT FLUID AND BURSAE: Small joint effusion and Santoyo's cyst. MR/MR knee LT wo con IMPRESSION: 1. Mild undersurface tearing of the posterior horn of the medial meniscus extending to the periphery at the junction with the meniscal body. 2. Mild patellofemoral and medial compartment osteoarthritis with a small joint effusion and Santoyo's cyst.
== END 2023-09-04 07:20 | disposition home or self-care (01) ==
LOC: HO.MRI 07:19
PROVIDERS: PCP Internal Medicine; Visit Provider Internal Medicine
DX: S89.92XA Unspecified injury of left lower leg, initial encounter (principal)
CPT/HCPCS: 73721

== ENCOUNTER 2023-09-12 11:16 | Outpatient (AMB) | payer OTHER, SELFPAY ==
[2023-09-12 11:17] VITALS: BMI 28.8
--- NOTE | 2023-09-12 11:17 | A.OFFVIS_ITS ---
Intake Vital Signs 09/12/23 11:17 Height 5 ft 9 in Weight 195 lb BMI 28.8 Intake Visit Reasons: OV-Left knee MRI review Intake Note: Hank is a 53 year old male who presents today with complaints of progressively worsening left knee pain and giving way., DOI 07/18/23. 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 He was seen by his primary care doctor and an MRI of his left knee was ordered. The patient states that he underwent left knee arthroscopic surgery by Dr. 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 The patient has not returned to work since his recent injury. He has done physical therapy which aggravated his pain. He has also tried Tylenol and anti-inflammatory medicines which gave him minimal relief. The patient wears a knee brace which gives him only mild relief. He states that his left knee gives out several times per day. Allergies No Known Allergies [No Known Allergies*] Allergy (Verified 09/12/23 11:18) Medication List - Last Reconciled 09/12/23 by Thomas Bravo MD clotrimazole-betamethasone 1-0.05 % 1 appl topical BID 2 weeks PFSH Medical History Pure hypercholesterolemia Skin lesion GERD (gastroesophageal reflux disease) Surgical History History of removal of nevus History of esophagogastroduodenoscopy (EGD) H/O colonoscopy H/O arthroscopic knee surgery Family History Father Cancer Pancreatic cancer Brother Adenomatous colon polyp Mother Adenomatous colon polyp Osteoporosis Pure hypercholesterolemia Social History Household Members: Spouse and Children Housing: House Are you a primary nurse wound care to a significant other at home: No Do you presently have visiting nurse or other home services: No Alcohol intake: current Alcohol intake frequency: a few times a week Patient Tobacco Use Status: Current someday Tobacco user Tobacco use type: Cigar Years Smoked: 19 years e-Cigarette/Vaping Use: Never Used Second Hand Smoke Exposure: No service: No Current occupational status: employed 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 Current occupational exposures/hazards: No Cognitive needs: No Hearing needs: No Vision needs: No Physical Exam Vital Signs: BMI result Body Mass Index 28.8 Const Other: Well-nourished well-developed very friendly male awake alert and oriented x3 in no acute distress Extrem Other: Bilateral lower extremity examination shows good capillary refill, no skin lesions noted, normal sensation light touch Left knee examination shows a minimal effusion, minimal crepitus with range of motion, tenderness along his medial joint line, positive Chepe's test, no instability Results Reviewed Results Reviewed: MRI of the patient's left knee shows a tear of the posterior horn of the medial meniscus as well as possible tearing of the anterior horn of the lateral meniscus, minimal diffuse degenerative changes, no acute bony abnormalities Assessment & Plan Assessment & Plan (1) Tear of medial meniscus of left knee: Code(s): S83.242A - Other tear of medial meniscus, current injury, left knee, initial encounter Plan Mr. Suárez presents with progressively worsening left knee pain and mechanical symptoms due to a medial meniscus tear and possible tearing of his lateral meniscus. I had a lengthy discussion with the patient regarding the treatment options. At this point the patient has failed continued non operative treatments. The risks and benefits of left knee arthroscopic surgery were discussed at length with the patient. The patient wishes to proceed with dwain newsome. Surgery will most likely involve left knee diagnostic arthroscopy with arthroscopic partial medial meniscectomy and possible arthroscopic partial lateral meniscectomy. The patient will be scheduled for a next available date. He will be given a prescription for pain medicine at the time of his surgery. Will follow-up as instructed. Feel free to call me at any time should questions regarding his orthopedic management arise. I spent 20 minutes in reviewing the patient's records and imaging studies, seeing the patient and documenting in the medical record. Coding Level of Care Code Est Pt Level 2 (19092) Diagnoses Tear of medial meniscus of left knee S83.242A
== END 2023-09-12 11:39 | disposition home or self-care (01) ==
PROVIDERS: PCP Internal Medicine; Visit Provider Orthopaedic Surgery
DX: S83.242A Other tear of medial meniscus, current injury, left knee, initial encounter (principal)
CPT/HCPCS: 99213

== ENCOUNTER → 2023-09-12 11:16 | Outpatient (BNVA) | payer OTHER, SELFPAY | PROVIDERS: PCP Internal Medicine; Visit Provider Orthopaedic Surgery | DX: S83.242A Other tear of medial meniscus, current injury, left knee, initial encounter (principal) | CPT/HCPCS: 99212 ==

== ENCOUNTER 2023-10-14 05:54 | Day surgery (SDC) | payer OTHER, SELFPAY ==
[2023-10-10 09:09] VITALS: BMI 28.8
--- NOTE | 2023-10-11 08:57 | HO.ANESPROP2 ---
Documented by User: July Michaud NP 10/11/23 09:04 HPI - Anesthesia Eval Consult details Narrative: 53yo M for Left Knee Arthroscopy, partial medial meniscetomy,possible Lateral meniscetomy Vocal cord nodule -found incidentally on EGD, no treatment, no symptoms PMFSH Active Problems Active Problems: All Active Problems (Updated 09/12/23 @ 11:41 by Thomas Bravo MD) Tear of medial meniscus of left knee (Acute) Left knee pain (Acute) Left knee injury (Acute) Left knee sprain (Acute) Physical exam (Acute) Ear discomfort (Acute) Upper respiratory tract infection (Acute) Tubular adenoma of colon (Acute) Chronic GERD (Acute) Internal hemorrhoids (Acute) Diverticulosis of colon (Acute) Vocal cord nodule (Acute) Encounter for screening colonoscopy (Acute) Chest pain due to GERD (Acute) Pure hypercholesterolemia (Acute) Skin lesion (Acute) Past Medical History Medical History Pure hypercholesterolemia Skin lesion GERD (gastroesophageal reflux disease) Family History Family History Father Cancer Pancreatic cancer Brother Adenomatous colon polyp Mother Adenomatous colon polyp Osteoporosis Pure hypercholesterolemia Surgical History Surgical History History of removal of nevus History of esophagogastroduodenoscopy (EGD) H/O colonoscopy H/O arthroscopic knee surgery Social History Social History Household Members: Spouse and Children Housing: House Are you a primary manager intensive care to a significant other at home: No Do you presently have visiting nurse or other home services: No Alcohol intake: current Alcohol intake frequency: a few times a week Patient Tobacco Use Status: Current someday Tobacco user Tobacco use type: Cigar Years Smoked: 19 years e-Cigarette/Vaping Use: Never Used Second Hand Smoke Exposure: No Are you DNR?: No Advance Directives: No Advance Directives Information Provided: Yes Nutrition Risks: No Nutritional Risk service: No Current occupational status: employed 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 Current occupational exposures/hazards: No Cognitive needs: No Hearing needs: No Vision needs: No Meds Allergies Allergy/AdvReac Type Severity Reaction Status Date / Time No Known Allergies Allergy Verified 09/12/23 11:18 [No Known Allergies*] Exam Height,Weight and Vital Signs: Height 5 ft 9 in Weight 88.451 kg Assessment and Plan Assessment Anesthesia Assessment: Chart Reviewed Documented by User: Karen Ortega MD 10/14/23 07:33 [facility] Past Medical History Medical History Pure hypercholesterolemia Skin lesion GERD (gastroesophageal reflux disease) Family History Family History Father Cancer Pancreatic cancer Brother Adenomatous colon polyp Mother Adenomatous colon polyp Osteoporosis Pure hypercholesterolemia Family history of problems with anesthesia: No Surgical History Surgical History History of removal of nevus History of esophagogastroduodenoscopy (EGD) H/O colonoscopy H/O arthroscopic knee surgery History of Problems with Anesthesia: No Social History Social History Household Members: Spouse and Children Housing: House Are you a primary manager intensive care to a significant other at home: No Do you presently have visiting nurse or other home services: No Alcohol intake: current Alcohol intake frequency: a few times a week Patient Tobacco Use Status: Current someday Tobacco user Tobacco use type: Cigar Years Smoked: 19 years e-Cigarette/Vaping Use: Never Used Second Hand Smoke Exposure: No Are you DNR?: No Advance Directives: No Advance Directives Information Provided: Yes Nutrition Risks: No Nutritional Risk service: No Current occupational status: employed 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 Current occupational exposures/hazards: No Cognitive needs: No Hearing needs: No Vision needs: No Meds Allergies Allergy/AdvReac Type Severity Reaction Status Date / Time No Known Allergies Allergy Verified 09/12/23 11:18 [No Known Allergies*] Exam Airway Mallampati Class: II TM Dist: >3cm Neck ROM: Full Heart: rrr Lungs: cta Assessment and Plan Assessment Anesthesia Assessment: Anesthesia Plan Discussed Final Anesthetic Review Family History of Problems with Anesthesia: No History of Problems with Anesthesia: No NPO: Yes ASA Class: II Final Preanesthetic Review: No Changes in Pt Med Stat, Meds/Allgs Chart Reviewed, Consent Obtained/Reviewed and Anes Risks/Benef Reviewed Patient Risk: Low Procedure Risk: Low Anesthetic Plan Anesthetic Plan: GA Disposition: Standard PACU
[2023-10-14] VITALS (8 sets, daily range): BP systolic 143–155; BP diastolic 77–92; PULSE 50–78; RESP 14–20; TEMP 36.1–37; O2SAT 97–99; BMI 29.0
[2023-10-14] MEDS: Lactated Ringers 1,000 ML 100 ML IVCONT (06:17)
--- NOTE | 2023-10-14 08:40 | PM.OP ---
Brief Operative Note Date of Service: 10/14/23 Pre-op diagnosis: Left knee medial meniscus tear, left knee lateral meniscus tear, left knee degenerative joint disease Post-op diagnosis: same Procedure: Left knee diagnostic arthroscopy with left knee arthroscopic partial medial and lateral meniscectomies, left knee arthroscopic chondroplasty of the undersurface of the patella as well as the medial femoral condyle Implants: none Surgeon: Thomas Bravo MD Anesthesia: GLMA Was an Coding Quality Coordinator used for this Procedure?: No Estimated blood loss (mL): 10 Pathology: none sent Condition: stable Disposition: PACU
[2023-10-14] MEDS: oxyCODONE HCl Immed Release 5 MG TABLET PO (08:41)
[2023-10-14] MEDS: fentaNYL citrate/PF 100 MCG/2 ML VIAL 25 MCG IVPUSH (08:42)
--- NOTE | 2023-10-14 08:43 | W.PM.OPN ---
Operative Note Operative Note Date of Service: 10/14/23 Narrative: After the patient was identified as Hank Suárez and his left knee was initialed by myself they were brought to the operating room where general anesthesia was induced by the anesthesiologist in routine fashion. The patient was given 2 g of IV Ancef preoperatively for infection prophylaxis. The patient's left lower extremity was prepped and draped in sterile fashion. A formal time-out was completed. Marcaine was injected into the planned incision sites as well as the patient's left knee joint. A #11 scalpel blade was used to make an anterolateral portal 1 cm proximal to the joint line and 1 cm lateral to the patellar tendon. Blunt trocar technique was used to enter the suprapatellar pouch with the knee in extension. Diagnostic arthroscopy showed multiple bands of thickened plica which would be excised at the end of the procedure. There were no loose bodies or abnormalities found in either the medial or lateral gutters. The articular surface of the patella showed diffuse grades 1 and 2 degenerative changes. The trochlear groove articular surface showed diffuse grade 1 degenerative changes. The patient's knee was flexed to 45 degrees and a valgus force was placed upon it. The medial compartment was entered. An anteromedial portal was made 1 cm proximal to the joint line and 1 cm medial to the patellar tendon. Probing of the medial meniscus showed a radial tear of the posterior horn. A partial medial meniscectomy was performed using the arthroscopic shaver. Following the partial meniscectomy the remainder of the meniscus tissue was stable. There were diffuse grades 1 and 2 degenerative changes of the medial femoral condyle as well as grade 1 degenerative changes of the medial tibial plateau. The articular surface of the medial femoral condyle was then made smooth using the arthroscopic shaver. The articular surface of the medial tibial plateau was already smooth so no chondroplasty was indicated. The patient's knee was placed into a neutral position. There was no injury to the anterior cruciate ligament. The patient's knee was then placed in the figure of 4 position and the lateral compartment was entered. There was a radial tear of the anterior horn of the lateral meniscus. A partial lateral meniscectomy was performed using the arthroscopic shaver. Following the partial lateral meniscectomy the remainder of the meniscus tissue was stable. There were minimal degenerative changes of the lateral femoral condyle and lateral tibial plateau. The patient's knee was once again brought into extension and the suprapatellar pouch was entered. The arthroscopic shaver and the ArthroCare Wand were used to excise the thickened bands of plica. The undersurface of the patella was then made smooth using the arthroscopic shaver. The articular surface of the trochlear groove was already smooth so no chondroplasty was indicated. The knee joint was irrigated and then drained. All arthroscopic instruments were removed. The 2 portals were closed with 3-0 nylon interrupted suture. The knee joint was injected with Marcaine. Dry sterile dressing and Patricio bandages were placed over the patient's knee. The patient was awoken and extubated in the operating room. The patient was transferred to the recovery room in stable condition.
[2023-10-14] MEDS: cefTRIAXone sodium 1 GM in 0.9 % Sodium Chloride 50 ML IV (09:16)
== END 2023-10-14 10:08 | disposition home or self-care (01) ==
PROVIDERS: PCP Internal Medicine; Visit Provider Orthopaedic Surgery
PROC: (CPT 29870; principal; 2023-10-14 07:30)
DX: S83.242A Other tear of medial meniscus, current injury, left knee, initial encounter (principal); S83.282A Other tear of lateral meniscus, current injury, left knee, initial encounter; X50.1XXA Overexertion from prolonged static or awkward postures, initial encounter; Y93.89 Activity, other specified; Y92.9 Unspecified place or not applicable; Y99.8 Other external cause status; M17.12 Unilateral primary osteoarthritis, left knee; M67.52 Plica syndrome, left knee; M25.562 Pain in left knee; M23.52 Chronic instability of knee, left knee; E78.00 Pure hypercholesterolemia, unspecified; Z98.890 Other specified postprocedural states; F17.290 Nicotine dependence, other tobacco product, uncomplicated
CPT/HCPCS: 29880; J0171; J0690; J0696; J1100; J1885; J2250; J2405; J2704; J2795; J3010

== ENCOUNTER → 2023-10-14 05:54 | Outpatient (BNV) | payer OTHER, SELFPAY | PROVIDERS: PCP Internal Medicine; Visit Provider Orthopaedic Surgery | DX: S83.242A Other tear of medial meniscus, current injury, left knee, initial encounter (principal); S83.282A Other tear of lateral meniscus, current injury, left knee, initial encounter | CPT/HCPCS: 29880 ==

== ENCOUNTER 2023-10-30 11:28 | Outpatient (AMB) | payer OTHER, SELFPAY ==
--- NOTE | 2023-10-30 11:59 | A.OFFVIS_ITS ---
Intake Intake Visit Reasons: PO-Lt Knee 10/14/23DR Intake Note: Jonh 53 year old male presents today for a post operative left knee on 10/14/23 Patient reports he is doing well, states tightness sensation at the posterior aspect of knee. Allergies No Known Allergies [No Known Allergies*] Allergy (Verified 10/30/23 11:59) HPI PO-Lt Knee 10/14/23DR HPI Details 53-year-old male who returns to the [facility] today for post-op left knee , 10/14/[address] Bravo. He states he has improvement in his pain however he does c/o a tight sensation at the posterior aspect of his knee. He is doing well otherwise and has no other concerns today. [facility] Medical History Pure hypercholesterolemia Skin lesion GERD (gastroesophageal reflux disease) Surgical History History of removal of nevus History of esophagogastroduodenoscopy (EGD) H/O colonoscopy H/O arthroscopic knee surgery Family History Father Cancer Pancreatic cancer Brother Adenomatous colon polyp Mother Adenomatous colon polyp Osteoporosis Pure hypercholesterolemia Social History Household Members: Spouse and Children Housing: House Are you a primary child care counselor to a significant other at home: No Do you presently have visiting nurse or other home services: No Alcohol intake: current Alcohol intake frequency: a few times a week Comment: tolerable, oxycodobe given Patient Tobacco Use Status: Current someday Tobacco user Tobacco use type: Cigar Years Smoked: 19 years e-Cigarette/Vaping Use: Never Used Second Hand Smoke Exposure: No service: No Current occupational status: employed 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 No erythema or joint effusion. He has full ROM without limitations. Calf supple, nontender. NVI. Results Reviewed Results Reviewed: Brief Operative Note Date of Service: 10/14/23 Pre-op diagnosis: Left knee medial meniscus tear, left knee lateral meniscus tear, left knee de generative joint disease Post-op diagnosis: same Procedure: Left knee diagnostic arthroscopy with left knee arthroscopic partial medial and lateral meniscectomies, left knee arthroscopic chondroplasty of the undersurface of the patella as well as the medial femoral condyle Implants: none Surgeon: Thomas rBavo MD Assessment & Plan Assessment & Plan (1) Tear of medial meniscus of left knee: Code(s): S83.242A - Other tear of medial meniscus, current injury, left knee, initial encounter Plan Sutures removed today, steri strips applied. He will continue to increase activity as tolerated and he will limit deep kneeling, bending, squatting, twist ing, or pivoting for the next 6 weeks to avoid reinjury. He will return to work on November 03 without limitations and see me back in [address] Bravo, sooner if needed. Patient Instructions: Scribed for Nii Delgado PA-C, by [facility] hospital medical assistant, on 10/30/2023 at 11:30 AM EST. I, Nii Delgado PA-C, have personally reviewed and agree with the information entered by the scribe. Coding Level of Care Code Global (75272) Diagnoses Tear of medial meniscus of left knee S83.242A
== END 2023-10-30 12:15 | disposition home or self-care (01) ==
PROVIDERS: PCP Internal Medicine; Visit Provider Physician Assistant
DX: S83.242A Other tear of medial meniscus, current injury, left knee, initial encounter (principal)
CPT/HCPCS: 99024

== ENCOUNTER → 2023-10-30 11:28 | Outpatient (BNVA) | payer OTHER, SELFPAY | PROVIDERS: PCP Internal Medicine; Visit Provider Physician Assistant | DX: S83.242D Other tear of medial meniscus, current injury, left knee, subsequent encounter (principal) | CPT/HCPCS: 99212 ==

== ENCOUNTER 2023-11-28 13:37 | Outpatient (AMB) | payer OTHER, SELFPAY ==
--- NOTE | 2023-11-28 13:39 | MHC.OFFVIS ---
Intake Visit Reasons: PO-Lt Knee 10/14/23DR Intake Note: Hank is a 53 year old male who presents for follow-up after undergoing left knee arthroscopic surgery on 10/14/2023. The patient reports minimal discomfort in his left knee but states that the ?cyst? along the posterior aspect of his knee is unchanged when compared to preoperatively. The patient reports continued discomfort and difficulty flexing his knee because of the presence of the cyst. He denies any fevers or chills. The patient states that he has been told that today will be his last appointment which is approved by his workman's compensation insurance. Allergies No Known Allergies [No Known Allergies*] Allergy (Verified 11/28/23 13:54) PFSH Medical History Pure hypercholesterolemia Skin lesion GERD (gastroesophageal reflux disease) Surgical History History of removal of nevus History of esophagogastroduodenoscopy (EGD) H/O colonoscopy H/O arthroscopic knee surgery Family History Father Cancer Pancreatic cancer Brother Adenomatous colon polyp Mother Adenomatous colon polyp Osteoporosis Pure hypercholesterolemia Social History Household Members: Spouse and Children Housing: House Are you a primary nurse care manager to a significant other at home: No Do you presently have visiting nurse or other home services: No Alcohol intake: current Alcohol intake frequency: a few times a week Comment: tolerable, oxycodobe given Patient Tobacco Use Status: Current someday Tobacco user Tobacco use type: Cigar Years Smoked: 19 years e-Cigarette/Vaping Use: Never Used Second Hand Smoke Exposure: No service: No Current occupational status: employed 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 Current occupational exposures/hazards: No Cognitive needs: No Hearing needs: No Vision needs: No Physical Exam Const Other: Well-nourished well-developed very friendly male awake alert and oriented x3 in no acute distress Extrem Other: Bilateral lower extremity examination shows good capillary refill, no skin lesions noted, normal sensation light touch Left knee examination shows a minimal effusion, the surgical incisions are well healed, no erythema, no crepitus with range of motion, there is a palpable popliteal cyst along the posterior aspect of his knee, no overlying skin lesions Assessment & Plan Assessment & Plan (1) Left knee pain: Code(s): M25.562 - Pain in left knee Category: Medical Plan Mr. Suárez presents with continued discomfort in his left knee after undergoing left knee arthroscopic surgery on 10/14/2023 due to the presence of a popliteal cyst. I discussed with the patient the fact that the cyst may diminish in size over time. I do feel that the patient would benefit significantly from continued clinical follow-up with me. Thus, I did recommend that the patient have a follow-up appointment in 6 weeks. If the patient's popliteal cyst is not decrease in size during this time I will try to arrange for the patient to have the cyst drained in the interventional radiology department. The patient will continue with activities as tolerated in the meantime. Feel free to call me at any time should questions regarding his orthopedic management arise. I spent 19 minutes in reviewing the patient's records and imaging studies, seeing the patient and documenting in the medical record.
== END 2023-11-28 14:22 | disposition home or self-care (01) ==
PROVIDERS: PCP Internal Medicine; Visit Provider Orthopaedic Surgery
DX: M71.22 Synovial cyst of popliteal space [Baker], left knee (principal)
CPT/HCPCS: 99212

== ENCOUNTER → 2023-11-28 13:37 | Outpatient (BNVA) | payer OTHER, SELFPAY | PROVIDERS: PCP Internal Medicine; Visit Provider Orthopaedic Surgery ==

== ENCOUNTER 2024-01-13 06:02 | Outpatient (REF) | payer OTHER, SELFPAY ==
[2024-01-13 10:56] LABS: Alanine Aminotransferase 17 U/L (0-40); Albumin Level 4.1 g/dL (3.5-5.0); Alkaline Phosphatase 46 U/L (39-117); Anion Gap 12 (12-20); Aspartate Amino Transferase 19 U/L (5-37); Bilirubin Total 0.5 mg/dL (0.0-1.0); Blood Urea Nitrogen 14 mg/dL (9-16); Calcium 9.8 mg/dL (8.4-10.2); Carbon Dioxide 29 mmol/L (22-29); Chloride 105 mmol/L (96-108); Cholesterol 207 mg/dL (<200); Estimated Glomerular Filt Rate > 60; Glucose Fasting 91 mg/dL (60-99); HDL Cholesterol 52 mg/dL (>40); LDL Cholesterol Calculated 139 mg/dL (<100); Potassium 4.6 mmol/L (3.3-5.1); Sodium 141 mmol/L (135-145); Total Protein 6.4 g/dL (6.5-8.0); Triglycerides 83 mg/dL (<150)
== END 2024-01-13 06:03 | disposition home or self-care (01) ==
LOC: HO.HMGCLDS 06:02
PROVIDERS: PCP Internal Medicine; Visit Provider Internal Medicine
DX: K21.9 Gastro-esophageal reflux disease without esophagitis (principal); E78.5 Hyperlipidemia, unspecified
CPT/HCPCS: 36415; 80053; 80061

== ENCOUNTER 2024-07-15 06:06 | Outpatient (REF) | payer OTHER, SELFPAY ==
[2024-07-15 10:47] LABS: Alanine Aminotransferase 22 U/L (0-40); Albumin Level 4.3 g/dL (3.5-5.0); Alkaline Phosphatase 48 U/L (39-117); Anion Gap 12 (12-20); Aspartate Amino Transferase 27 U/L (5-37); Bilirubin Total 0.5 mg/dL (0.0-1.0); Blood Urea Nitrogen 12 mg/dL (9-16); Calcium 10.2 mg/dL (8.4-10.2); Carbon Dioxide 29 mmol/L (22-29); Chloride 102 mmol/L (96-108); Cholesterol 221 mg/dL (<200); Estimated Glomerular Filt Rate > 60; Glucose Fasting 111 mg/dL (60-99); HDL Cholesterol 57 mg/dL (>40); LDL Cholesterol Calculated 145 mg/dL (<100); Potassium 4.3 mmol/L (3.3-5.1); Sodium 139 mmol/L (135-145); Total Protein 7.4 g/dL (6.5-8.0); Triglycerides 95 mg/dL (<150)
== END 2024-07-15 06:07 | disposition home or self-care (01) ==
LOC: HO.HMGCLDS 06:06
PROVIDERS: PCP Internal Medicine; Visit Provider Internal Medicine
DX: Z00.00 Encounter for general adult medical examination without abnormal findings (principal); E78.5 Hyperlipidemia, unspecified
CPT/HCPCS: 36415; 80053; 80061

== ENCOUNTER 2024-07-28 14:50 | Outpatient (AMB) | payer OTHER, SELFPAY ==
--- NOTE | 2024-07-28 15:01 | MHC.PC.OV ---
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 Accompanied by: Self / Same As Patient Allergies No Known Allergies [No Known Allergies*] Allergy (Verified 07/28/24 15:09) Medication List - Last Reconciled 07/28/24 by Lora Cummings MD No Known Home Meds Tobacco use date assessed: 07/28/24 Dental Screening Dental Screen Date: 07/28/24 Did you have a dental visit in the last 12 months?: Yes Did you have a dental problem in the last 6 months where you did not have access to dental care?: No Was dental information given to patient?: Patient has dentist HPI HPI Comments History of Present Illness Details The patient is a 54-year-old male presenting for an annual physical examination. The patient reports previously being informed of high cholesterol and elevated blood glucose levels. Despite a weight loss of approximately 15 pounds since last year, achieved through dietary improvements, there is surprise regarding the elevated cholesterol levels. The patient mentions no significant dietary changes except a reduction in egg and mayonnaise consumption. Previous weight ranged from 195 to 198 pounds. Exercise is limited due to knee issues, but the patient engages in regular walking and summer softball activities. Past medical history includes skin lesion removal, knee arthroscopy, colonoscopy with findings of polyps in 2020, and an unidentified vocal cord lesion that is pending evaluation by an ENT specialist. There is no family history of diabetes. Recent lab results indicate a cholesterol level increase from 207 to 221 and glucose level rise from 91 to 111. The patient suspects recent illness might have affected glucose levels. - Encouraged dietary modifications for cholesterol management - Assessed cardiovascular risk using [place] Risk Score: 6.8% - Discussed family history of osteoporosis in mother - Reviewed smoking history: occasional cigar use, ceased due to cost - Noted recent tetanus vaccination: approximately 2 years ago - Discussed influenza vaccination; patient declines annual shot COUNTS INCLUDE 234 BEDS AT THE [facility] Medical History Pure hypercholesterolemia Skin lesion GERD (gastroesophageal reflux disease) Surgical History History of removal of nevus History of esophagogastroduodenoscopy (EGD) H/O colonoscopy H/O arthroscopic knee surgery Family History Father Cancer Pancreatic cancer Brother Adenomatous colon polyp Mother Adenomatous colon polyp Osteoporosis Pure hypercholesterolemia Social History Household Members: Spouse and Children Housing: House Are you a primary daycare assistant to a significant other at home: No Do you presently have visiting nurse or other home services: No Alcohol intake: current Alcohol intake frequency: a few times a week Comment: tolerable, oxycodobe given Patient Tobacco Use Status: Current someday Tobacco user Tobacco use type: Cigar Years Smoked: 19 years e-Cigarette/Vaping Use: Never Used Second Hand Smoke Exposure: No service: No Current occupational status: employed Current occupation: [employer] Current occupational exposures/hazards: No Cognitive needs: No Hearing needs: No Vision needs: No Questionnaire Thrive Questionnaire Date Thrive assessed: 01/11/22 PRIMO-7 AMB Questionnaire PRIMO-7 Date PRIMO - 7 assessed: 01/11/22 Source: Developed by Drs. Nacho Henao, Erika Ocasio, Сергей Rossi and colleagues, with an educational ashutosh from [employer]. Review of Systems Const Details: - General: Denies shortness of breath - Respiratory: Denies any respiratory issues Physical exam (Primary Care) Vital Signs: Last Vital Signs BP 130/78 07/28/24 15:02 BMI result Body Mass Index 27.9 Tobacco/Smoking Status: Tobacco use Status Tobacco use date assessed 07/28/24 07/28/24 15:05 Patient Tobacco Use Status Current someday Tobacco 07/28/24 15:05 Tobacco use type Cigar 07/28/24 15:05 e-Cigarette/Vaping Use Never Used 07/28/24 15:05 Thrive Assessment: Date of Thrive Assessment Date Thrive assessed 01/11/22 07/28/24 15:05 Const Other: General: Cooperative, healthy appearing, comfortable, no acute distress and well developed Orientation: Patient oriented x3 Limitations: No limitations Head: Normal to inspection Ears: Hearing grossly normal bilaterally Nose: Normal external nose present Face and sinus: Normal facial exam Eyes: Appearance normal, both eyes and all related structures Neck: Normal visual inspection and Yes full ROM Respiratory: Normal respiratory effort and able to speak in complete sentences. Clear to auscultation bilaterally Cardiovascular: Regular rate and rhythm. Normal S1 and S2 GI: Normal to inspection. Soft to palpation and nontender Skin: No rashes or lesions noted Neuro: Patient oriented x3 Extremities: Normal to inspection Office Procedures Flu Questionnaire Does the patient have a severe egg allergy?: No Immunizations Fluarix Triv [id number] (PF) 45 mcg (15 mcg x 3)/0.5 mL IM syringe Performing Provider: Lora Cummings MD [facility] Documented (not given) by: JARETH Krishnan on 07/28/24 15:06 Reason Not Given: Patient Refused Coding Level of Care Code Est Pt Prev Care 40-64y(46728) Diagnoses Physical exam Z00.00 Time Spent (min) 31 Assessment & Plan Assessment & Plan (1) Physical exam: Code(s): Z00.00 - Encounter for general adult medical examination without abnormal findings Category: Medical Plan - Recommend lifestyle modifications to address hypercholesterolemia, including dietary changes and monitoring intake of cholesterol-rich foods. - Follow-up on elevated glucose levels by re-evaluating in six months. - Schedule ENT evaluation for vocal cord lesion. - Continue routine health maintenance and preventions such as tetanus vaccination and assess influenza vaccination status annually. - Monitor the cardiovascular risk profile using the [place] Risk Score and consider medication if necessary based on future assessments. Patient was informed and verbally consented to the use of an ambient scribe for clinic note documentation during this visit. I discussed with the patient the current findings of elevated cholesterol and glucose levels and the potential need for ongoing monitoring and future interventions. The [place] Risk Score indicates a 6.8% risk, and I explained the implications of this score along with recommendations for lifestyle modifications. There was a discussion regarding the potential impact of recent illness on glucose levels. We agreed to re-evaluate the blood glucose level in six months. I have advised the patient to maintain dietary changes, continue monitoring weight, and address exercise limitations pragmatically. Further management was agreed for the vocal cord lesion once the ENT evaluation is completed. Orders: Orders Lipid Panel 6 Months E78.5 - Hyperlipidemia, unspecified Influenza [id number] Immunization Today Z23 - Encounter for immunization Comprehensive [place]. Panel Fast 6 Months Z00.00 - Encounter for general adult medical examination without abnormal findings Patient Instructions: - Continue with the dietary modifications to reduce cholesterol intake. - Resume physical activities as tolerated and aim to incorporate regular exercise, considering knee issues. - Plan follow-up lab evaluations for cholesterol and glucose in six months. - Schedule ENT consultation for vocal cord lesion assessment. - Review annual vaccination requirements, including influenza and tetanus, with the healthcare provider.
[2024-07-28 15:02] VITALS: BP 130/78; BMI 27.9
== END 2024-07-28 15:27 | disposition home or self-care (01) ==
PROVIDERS: PCP Internal Medicine; Visit Provider Internal Medicine
DX: Z00.00 Encounter for general adult medical examination without abnormal findings (principal); Z23 Encounter for immunization

== ENCOUNTER → 2024-07-28 14:50 | Outpatient (BNVA) | payer OTHER, SELFPAY | PROVIDERS: PCP Internal Medicine; Visit Provider Internal Medicine | DX: Z00.00 Encounter for general adult medical examination without abnormal findings (principal); Z28.21 Immunization not carried out because of patient refusal | CPT/HCPCS: 90471 ==

== ENCOUNTER 2025-01-11 06:01 | Outpatient (REF) | payer OTHER, SELFPAY ==
[2025-01-11 10:45] LABS: Anion Gap 10 (12-20); Bilirubin Total 0.3 mg/dL (0.0-1.0); Blood Urea Nitrogen 13 mg/dL (9-16); Calcium 9.8 mg/dL (8.4-10.2); Carbon Dioxide 31 mmol/L (22-29); Chloride 105 mmol/L (96-108); Estimated Glomerular Filt Rate > 60; Glucose Fasting 98 mg/dL (60-99); Sodium 142 mmol/L (135-145)
[2025-01-11 10:46] LABS: Alanine Aminotransferase 18 U/L (0-40); Albumin Level 4.1 g/dL (3.5-5.0); Alkaline Phosphatase 49 U/L (39-117); Aspartate Amino Transferase 29 U/L (5-37); Cholesterol 164 mg/dL (<200); HDL Cholesterol 53 mg/dL (>40); LDL Cholesterol Calculated 100 mg/dL (<100); Total Protein 6.5 g/dL (6.5-8.0); Triglycerides 56 mg/dL (<150)
== END 2025-01-11 06:02 | disposition home or self-care (01) ==
LOC: HO.HMGCLDS 06:01
PROVIDERS: PCP Internal Medicine; Visit Provider Internal Medicine
DX: E78.5 Hyperlipidemia, unspecified (principal); Z00.00 Encounter for general adult medical examination without abnormal findings
CPT/HCPCS: 36415; 80053; 80061

== ENCOUNTER 2025-07-19 06:00 | Outpatient (REF) | payer OTHER, SELFPAY ==
--- OUTSIDE RECORDS SUMMARY | 2025-07-19 06:04 | XMS_ITS ---
Author Organization Unknown ENCOUNTERS Encounter Performer Location Date Diagnosis Diagnosis Status Pre Admit [address] [id number] Outpatient [address] [address] [id number] [facility] [address] [address] [id number] [facility] *Note: Encounters from your own facility or health system may be excluded. Allergies, Adverse Reactions, Alerts Allergen Type Severity Identification Date Medications Name Date Quantity Days Supplied GPI Number
[2025-07-19 11:02] LABS: Alanine Aminotransferase 17 U/L (0-40); Albumin Level 4.3 g/dL (3.5-5.0); Alkaline Phosphatase 41 U/L (39-117); Anion Gap 9 (12-20); Aspartate Amino Transferase 24 U/L (5-37); Blood Urea Nitrogen 9 mg/dL (9-16); Calcium 9.5 mg/dL (8.4-10.2); Carbon Dioxide 31 mmol/L (22-29); Chloride 104 mmol/L (96-108); Cholesterol 189 mg/dL (<200); Estimated Glomerular Filt Rate > 60; HDL Cholesterol 58 mg/dL (>40); Potassium 4.5 mmol/L (3.3-5.1); Sodium 139 mmol/L (135-145); Total Protein 6.8 g/dL (6.5-8.0); Triglycerides 51 mg/dL (<150)
== END 2025-07-19 06:01 | disposition home or self-care (01) ==
LOC: HO.HMGCLDS 06:00
PROVIDERS: PCP Internal Medicine; Visit Provider Internal Medicine
DX: K21.9 Gastro-esophageal reflux disease without esophagitis (principal); E78.5 Hyperlipidemia, unspecified
CPT/HCPCS: 36415; 80053; 80061

== ENCOUNTER 2025-07-29 14:20 | Outpatient (AMB) | payer OTHER, SELFPAY ==
--- NOTE | 2025-07-29 14:35 | A.OFFPC_ITS ---
Vital Signs 07/29/25 14:41 Height 5 ft 9 in Weight 176 lb 2 oz BMI 26.0 BP 120/78 Blood Pressure Location Lt brachial Position Sitting Pulse 68 Pulse Source Pulse Oximeter Temp 97.3 F Temp Source Temporal Artery Scan Pulse Oximetry (%) 99 Oxygen Delivery Method Room Air Intake Visit Reasons: Annual exam Intake Note: Patient is here today for a physical. Programs Director Required: No Registered Route Associate: Not Required per policy Accompanied by: Self / Same As Patient Allergies No Known Allergies (No Known Allergies*) Allergy (Verified 07/29/25 14:48) Medication List - Last Reconciled 07/29/25 by Lora Cummings MD No Known Home Meds Tobacco use date assessed: 07/29/25 Dental Screening Dental Screen Date: 07/29/25 Did you have a dental visit in the last 12 months?: Yes Did you have a dental problem in the last 6 months where you did not have access to dental care?: No Was dental information given to patient?: Patient has dentist HPI HPI Comments History of Present Illness Details The patient is a 55 year old male presenting for his physical exam. He reports a weight gain of over 10 pounds intentionally with diet.- Vaccinations: Patient is up to date on his Tdap vaccine, having received it within the last 5 years. - He declines the influenza vaccine. - The Shingrix (shingles) vaccine was re commended. - The RSV vaccine was also discussed, bu t it was noted that his insurance may not cover it until age 59. - Cancer Screening: A referral will be p laced for a follow-up colonoscopy as his last one was in 2020 and showed polyps. - Labs: Recent labs show a glucose of 88 mg/dL, total cholesterol of 189 mg/dL, HDL of 58 mg/dL, and normal triglycerides with excellent kidney function. - Diet and Weight: Patient reports a laura ght gain of over 10 pounds. - He has made dietary changes including avoiding mayonnaise, eggs, cheese, and bread, and eats healthy prepackaged meals for lunch. Regarding his musculoskeletal history, the patient reports recurrent knee pain, which is now located underneath his kneecap. The current episode began after a softball game when he was walking backwards. He has a history of a meniscus injury and has had two prior ultrasounds on the knee. He manages the pain by wearing a brace full-time, which he reports makes it feel good, and he wishes to avoid further workup, such as a costly MRI. His last Tdap vaccine was within the last five years, which he received at an urgent care after cutting his hand on hedge clippers. He has no history of chickenpox or measles. His last colonoscopy was in 2020, which found a couple of polyps, and he is due for a 5-year follow-up. 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 Recent lab results showed excellent kidney function, a glucose level of 88, and a total cholesterol of 189. His triglycerides were normal, and his HDL was 58. He attributes these results to dietary changes, including avoiding mayonnaise, eggs, cheese, and bread, and eating pre-packaged healthy dinners for lunch. [facility] Medical History Pure hypercholesterolemia Skin lesion GERD (gastroesophageal reflux disease) Surgical History History of removal of nevus History of esophagogastroduodenoscopy (EGD) H/O colonoscopy H/O arthroscopic knee surgery Family History Father Cancer Pancreatic cancer Brother Adenomatous colon polyp Mother Adenomatous colon polyp Osteoporosis Pure hypercholesterolemia Social History Household Members: Spouse and Children Housing: House Are you a primary student career development specialist to a significant other at home: No Do you presently have visiting nurse or other home services: No Alcohol intake: current Alcohol intake frequency: a few times a week Comment: tolerable, oxycodobe given Patient Tobacco Use Status: Former Tobacco user Tobacco use type: Cigar Years Smoked: 19 years e-Cigarette/Vaping Use: Never Used Second Hand Smoke Exposure: Yes service: No Current occupational status: employed 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 1. Little interest or pleasure in doing things: not at all 2. Feeling down, depressed, or hopeless: not at all 3. Trouble falling or staying asleep, or sleeping too much: not at all 4. Feeling tired or having little energy: not at all 5. Poor appetite or overeating: not at all 6. Feeling bad about yourself - or that you are a failure or have let yourself or your family down: not at all 7. Trouble concentrating on things, such as reading the newspaper or watching television: not at all 8. Moving or speaking so slowly that other people could have noticed. Or the opposite - being so fidgety or restless that you have been moving around a lot more than usual: not at all 9. Thoughts that you would be better off or of hurting yourself in some way: not at all Total score: 0 Depression Screening Interpretation: Negative Depression Screening Done: Yes 62161 - PHQ-9 Billing: Yes Source: Developed by Drs. Nacho Henao, Erika Ocasio, Сергей Rossi and colleagues, with an educational ashutosh from [employer]. Thrive Questionnaire Date Thrive assessed: 01/11/22 I am a: Patient What is your living situation today?: I have a steady place to live Within the past 12 months, did the food you bought not last and you didn't have the money to get more?: Never true Within the past 12 months, did you worry whether your food would run out before you got money to buy more?: Never true Do you have trouble paying for medicines?: No Do you have trouble getting transportation to medical appointments?: No Do you have trouble paying your heating and electricity bill?: I choose not to answer this question Do you have trouble taking care of your child, family member or friend?: I choose not to answer this question Do you have trouble with day-to-day activities such as bathing, preparing meals, shopping, managing finances, etc.?: No Are you currently unemployed and looking for a job?: No Are you interested in more education?: No Please select the resources that you would like help with: None Currently or been in a relationship where the following occur: No concerns reported THRIVE Score: 0 AUDIT C Alcohol Use Questionnaire (AUDIT-C) 1. How often do you have a drink containing alcohol?: 2-3 times a week 2. How many drinks containing alcohol do you have on a typical day when you are drinking?: 3 or 4 3. How often do you have six or more drinks on one occasion?: Monthly Total Score: 6 PRIMO-7 AMB Questionnaire PRIMO-7 Date PRIMO - 7 assessed: 01/11/22 Feeling nervous, anxious, or on edge: 0 = Not at all Not being able to stop or control worryin = Not at all Worrying too much about different things: 0 = Not at all Trouble relaxin = Not at all Being so restless that it is hard to sit still: 0 = Not at all Becoming easily annoyed or irritable: 0 = Not at all Feeling afraid as if something awful might happen: 0 = Not at all Total PRIMO-7 score (0-4 normal; 5-9 mild; 10-14 moderate; 15-21 severe): 0 Source: Developed by Drs. Nacho Henao, Erika Ocasio, Сергей Rossi and colleagues, with an educational ashutosh from [employer]. PRIMO-7 Assessment Billing PRIMO-7 Assessment Tool: PRIMO-7 Assessment 76919 Review of Systems Const All systems reviewed & are unremarkable except as noted in HPI and below Card Denies chest pain at rest, Denies chest pain with activity, Denies edema, Denies irregular heart rhythm, Denies claudication, Denies dyspnea, Denies dyspnea on exertion, Denies orthopnea, Denies paroxysmal nocturnal dyspnea and Denies slow heart rate Resp Denies cough, Denies dyspnea and Denies dyspnea on exertion GI Denies abdominal pain, Denies change in bowel habits, Denies excessive flatus, Denies nausea and Denies vomiting Physical exam (Primary Care) Vital Signs: Last Vital Signs Temp 97.3 F 07/29/25 14:41 Pulse 68 07/29/25 14:41 BP 120/78 07/29/25 14:41 Pulse Ox 99 07/29/25 14:41 Oxygen Delivery Method Room Air 07/29/25 14:41 BMI result Body Mass Index 26.0 Tobacco/Smoking Status: Tobacco use Status Tobacco use date assessed 07/29/25 07/29/25 14:45 Patient Tobacco Use Status Former Tobacco user 07/29/25 14:45 Tobacco use type Cigar 07/29/25 14:44 e-Cigarette/Vaping Use Never Used 07/29/25 14:44 PHQ-9: PHQ-9 Score PHQ-9: Total score 0 07/29/25 14:35 Depression Screening Interpretation: Negative Thrive Assessment: Date of Thrive Assessment Date Thrive assessed 01/11/22 07/29/25 14:35 Currently or been in a relationship where the following occur: No concerns reported HENMT Head: Yes normal to inspection, Yes normocephalic and Yes atraumatic Ears: external ears normal Eyes General: appearance normal, both eyes and all related structures Eyelids: Yes eyelids normal Conjunctivae: conjunctivae normal Neck Neck: Yes normal visual inspection and Yes supple Resp Effort & Inspection: normal respiratory effort Auscultation: clear to auscultation bilaterally Cardio Jugular venous distension: no JVD Rate: regular rate Rhythm: regular rhythm Heart sounds: S1 normal heart sound present and S2 normal heart sound present GI Inspection: Yes normal to inspection Palpation (GI): Soft to palpation and nontender Auscultation: normal bowel sounds Skin General skin exam: no rashes or lesions noted Neuro General: no focal motor deficits Extrem General: Yes full ROM Psych Appearance: grossly normal Coding Level of Care Code Est Pt Prev Care 40-64y(38737) Diagnoses Physical exam Z00.00 Additional Codes PHQ-9 - 08316 - PHQ-9 Billing: Yes ([id number]) PRIMO-7 Assessment Billing - PRIMO-7 Assessment Tool: PRIMO-7 Assessment 22152 ([id number]) Time Spent (min) 30 Assessment & Plan Assessment & Plan (1) Physical exam: Code(s): Z00.00 - Encounter for general adult medical examination without abnormal findings Category: Medical Plan Plan 1. Physical exam The patient is a 55-year-old male presenting for a wellness visit. His recent lab work, including kidney function, glucose, and cholesterol panel, is excellent. A referral for a follow-up colonoscopy will be placed, as his last procedure was in 2020 and showed polyps. Immunizations were discussed; the patient declines the influenza vaccine but was advised on the availability of the Shingrix and RSV vaccines, though he may be too young for the latter to be covered by insurance. Orders: Orders Comprehensive [place]. Panel Fast 1 Year Z00.00 - Encounter for general adult medical examination without abnormal findings Lipid Panel 1 Year E78.5 - Hyperlipidemia, unspecified Referrals Open Access Screening Colonoscopy Referral Z12.12 - Encounter for screening for malignant neoplasm of rectum
[2025-07-29 14:41] VITALS: BP 120/78; PULSE 68; TEMP 36.3; O2SAT 99; BMI 26.0
== END 2025-07-29 15:11 | disposition home or self-care (01) ==
PROVIDERS: PCP Internal Medicine; Visit Provider Internal Medicine
DX: Z00.00 Encounter for general adult medical examination without abnormal findings (principal)

== ENCOUNTER → 2025-07-29 14:20 | Outpatient (BNVA) | payer OTHER, SELFPAY | PROVIDERS: PCP Internal Medicine; Visit Provider Internal Medicine | DX: Z00.00 Encounter for general adult medical examination without abnormal findings (principal); E78.5 Hyperlipidemia, unspecified | CPT/HCPCS: 96127 ==